=== PATIENT | female | born 1985 | race Caucasian/White ===

== ENCOUNTER 2018-08-18 12:15 | Emergency (ER) | payer MEDICAID, SELFPAY ==
[2018-08-18 12:20] VITALS: BP 107/73; PULSE 105; RESP 16; TEMP 36.7; O2SAT 97
--- NOTE | 2018-08-18 12:41 | DI.CT_ITS ---
SYMPTOMS/DIAGNOSIS: ABDOMINAL PAIN, FEVER CT ABDOMEN AND PELVIS: CT abdomen and pelvis was performed following the uneventful administration of intravenous and oral contrast material. No priors for comparison. The visualized lung bases are clear. The liver, spleen, pancreas, gallbladder, bile ducts, adrenal glands, kidneys, ureter and bladder are unremarkable. The reproductive organs are unremarkable. The aorta is of normal caliber. No significant abdominal or pelvic ascites or pneumoperitoneum is present. There is mild bowel wall thickening seen in loops of small bowel in the left abdomen, suspicious for an enteritis involving the jejunum. The remainder of the bowel is unremarkable. A normal appendix is seen in the right lower quadrant. The bones appear intact. IMPRESSION: Findings consistent with an enteritis. The findings were discussed with the Emergency Department on the date of the examination.
[2018-08-18 12:52] LABS: Bilirubin Negative (Negative); Blood Negative (Negative); Clarity Clear; Glucose Negative (Negative); Ketones Trace mg/dL (Negative); Leukocyte Esterase Negative (Negative); Nitrite Negative (Negative); Specific Gravity 1.025 (1.005-1.025); Urobilinogen 0.2 EU/dL (Up TO 0.2); pH 5.5 (5-8)
[2018-08-18] MEDS: Ketorolac 30 MG/ML VIAL IVP (12:57)
[2018-08-18] MEDS: Normal Saline 1,000 ML 1000 ML IV (12:57)
[2018-08-18] MEDS: Ondansetron 4 MG/2 ML VIAL IVP (12:58)
[2018-08-18 13:05] LABS: Absolute Basophil Count 0.01 k/cumm (0.0-0.2); Absolute Eosinophil Count 0.09 k/cumm (0.0-0.7); Absolute Monocyte Count 0.36 k/cumm (0.11-0.7); Absolute Neutrophil Count 4.09 k/cumm (1.2-6.7); Basophils % 0.2; Eosinophils % 1.7; HGB 15.6 g/dL (12.0-15.5); Lymphocytes % 13.3; Mean Corp. HGB Concentration 34.7 g/dL (32.0-36.0); Mean Corpuscular Hemoglobin 30.8 pg (27.0-33.0); Mean Corpuscular Volume 88.9 fL (80-95); Mean Platelet Volume 9.5 fL (8.0-11.0); Monocytes % 6.9; Neutrophils % 77.9; Platelet Count 208 x1000/uL (130-400); RBC 5.06 m/cumm (4.00-5.20); RBC Distribution Width 12.9 % (11.7-14.6); White Blood Cell Count 5.25 k/cumm (4.4-10.8)
--- NOTE | 2018-08-18 13:11 | W.ED.GENAD ---
Discharge Plan Disposition Patient Disposition: HOME Condition: Stable Discharge Details Chief Complaint: Abd Prob Clinical Impression: Gastroenteritis Primary Care Provider: Maribell Hearn ED Provider: Benedict Dowell Home Meds and New Rx's Prescriptions: New ondansetron 4 mg tablet,disintegrating 4 mg PO Q6H PRN (Reason: nausea and vomiting) Qty: 14 RF: 0 Continue dextroamphetamine-amphetamine [Adderall XR] 15 mg Capsule,Extended Release 24hr 15 mg PO QAM RF: 0 Discharge Instructions Instructions: Gastroenteritis (ED) Additional Instructions: Feel free to return to the emergency department as needed for any new or worsening symptoms, high fever, persistent nausea vomiting, or any further concerns he may have. Otherwise take antinausea medication as needed and acetaminophen/Tylenol for any discomfort and follow-up with your primary care provider for reassessment if not improving next week. Stay well-hydrated and get plenty of rest during illness. Referrals: Maribell Hearn [Primary Care Provider] - (If not improving in the next week please follow-up with your primary care provider as needed for reassessment.) Discharge Data Discharge Date/Time-TO BE ENTERED AT DEPARTURE: 08/18/18 15:51 Medical Decision Making Patient presenting to the emergency department for chief complaint of abdominal pain. Patient reports that this is been going on for 3 days and she has been having nausea vomiting fever and chills. She denies ever having pain or discomfort like this. Patient states last menstrual period is 3 weeks ago and denies any urinary or vaginal symptoms. Physical exam shows left lower quadrant and suprapubic tenderness but otherwise is unremarkable. Plan on checking status, labs, and CT imaging given that patient does have fever and abdominal pain. Differential diagnosis includes diverticulitis, atypical appendicitis, gastroenteritis. Pending results patient given ketorolac, Zofran, and IV fluid. After review of labs that show no leukocytosis, CMP and other lab is nondiagnostic, and CT imaging shows signs of enteritis otherwise no other acute findings noted. Patient was reassessed. Patient stated improvement after medications and fluids and just states some mild upset stomach and belching so patient was ordered GI cocktail. Otherwise I feel the patient is able to be safely discharged to follow-up with her primary care provider if not improving over the next week. Patient was given prescription for ODT Zofran to use for any nausea vomiting and encouraged to stay well-hydrated and get plenty of rest during illness. After discussion of diagnosis and plan of care patient has no further needs, questions, or concerns and states clear understanding to return to the emergency department for any worsening symptoms. HPI General Mode of arrival: ambulatory. Date/Time Provider Initiated Documentation: 08/18/18 12:17. Limitations to Documentation: no limitations. Information obtained by: patient and RN notes reviewed. History of Present Illness 32 year old F presents to the emergency department with the chief complaint of Abdominal pain, described as moderate, with intensity rated at 5. Quality is described as aching, and is localized to the abdomen. Patient reports no radiation. Patient started experiencing this day(s) (3) and it has been constant. No relieving factors improve symptom(s), No exacerbating factors reported . Patient notes nausea/vomiting. Patient did receive the following treatments prior to arrival, none Related Data Home Medications Medication Instructions Recorded Confirmed dextroamphetamine-amphetamine 15 mg PO QAM 08/18/18 08/18/18 [Adderall XR] ondansetron 4 mg PO Q6H PRN #14 tab 08/18/18 Previous Rx's Medication Instructions Recorded ondansetron 4 mg PO Q6H PRN #14 tab 08/18/18 Allergies Allergy/AdvReac Type Severity Reaction Status Date / Time cephalexin [From Keflex] Allergy Unverified 08/18/18 12:25 clindamycin Allergy Unverified 08/18/18 12:25 General Stated Complaint: Abd Prob SHAILESH: 3 Review of Systems Constitutional Reports chills, Reports fever(s), Reports malaise and Reports poor appetite Cardiovascular Denies chest pain and Denies dyspnea Respiratory Denies dyspnea Gastrointestinal Reports as per HPI, Reports abdominal pain, Denies melena, Denies change in bowel habits, Denies constipation, Denies diarrhea, Reports nausea and Reports vomiting Genitourinary Denies hematuria, Denies urinary incontinence, Denies urinary hesitancy and Denies urinary urgency Integumentary/Breasts Denies rash PFSH Social History Smoking/Tobacco Use Status: Current-Occasional Exam Const General: cooperative Orientation: alert, awake and oriented x3 Resp Effort & Inspection: normal respiratory effort and able to speak in complete sentences Auscultation: clear to auscultation bilaterally Cardio Rate: regular rate Rhythm: regular rhythm Heart Sounds: S1 normal and S2 normal GI Palpation: soft, no hepatosplenomegaly, not firm, no guarding, no masses, no pulsatile masses, not rigid, no splenomegaly and tender in the LLQ and suprapubicly; Sterling's sign negative and Rovsing's sign negative Auscultation: normal bowel sounds Back/Spine/Pelvis Back: no CVA tenderness Neuro General: alert, awake, oriented x3, gait normal and moves all extremities Course Vital Signs Temperature 36.7 C 08/18/18 12:20 Pulse 105 H 08/18/18 12:20 Respiratory Rate 16 08/18/18 12:20 Blood Pressure 107/73 08/18/18 12:20 Pulse Oximetry 97 08/18/18 12:20 Temperature 36.7 C 08/18/18 12:20 Temperature Source Temporal Artery Scan 08/18/18 12:20 Pulse 105 H 08/18/18 12:20 Respiratory Rate 16 08/18/18 12:20 Respiratory Effort Non-Labored 08/18/18 12:22 Blood Pressure 107/73 08/18/18 12:20 Pulse Oximetry 97 08/18/18 12:20 Oxygen Delivery Method Room Air 08/18/18 12:20 Oxygen Flow Rate 0 08/18/18 12:20 Pain Level 5 08/18/18 12:58 Lab/Test Results Lab/Test Results: Laboratory Tests Range/Units 08/18/18 08/18/18 12:45 12:58 WBC (4.4-10.8) k/cumm 5.25 RBC (4.00-5.20) m/cumm 5.06 Hgb (12.0-15.5) g/dL 15.6 H Hct (36.0-46.0) % 45.0 MCV (80-95) fL 88.9 MCH (27.0-33.0) pg 30.8 MCHC (32.0-36.0) g/dL 34.7 RDW (11.7-14.6) % 12.9 Plt Count (130-400) x1000/uL 208 MPV (8.0-11.0) fL 9.5 Immature Gran % 0.0 Neutrophils % 77.9 Lymphocytes % 13.3 Monocytes % 6.9 Eosinophils % 1.7 Basophils % 0.2 Absolute Neutrophils (1.2-6.7) k/cumm 4.09 Absolute Lymphocytes (1.2-3.4) k/cumm 0.70 L Absolute Monocytes (0.11-0.7) k/cumm 0.36 Absolute Eosinophils (0.0-0.7) k/cumm 0.09 Absolute Basophils (0.0-0.2) k/cumm 0.01 Urine Color (Yellow) Yellow Urine Clarity Clear Urine pH (5-8) 5.5 Ur Specific [place] (1.005-1.025) 1.025 Urine Protein (Negative) mg/dL Negative Urine Ketones (Negative) mg/dL Trace H Urine Blood (Negative) Negative Urine Nitrite (Negative) Negative Urine Bilirubin (Negative) Negative Urine Urobilinogen (Up TO 0.2) EU/dL 0.2 Ur Leukocyte Esterase (Negative) Negative Urine Glucose (Negative) mg/dL Negative POC- Test(urine) Negative
[2018-08-18 13:16] LABS: ALT 41 U/L (12-78); AST 40 U/L (15-37); Albumin 3.2 g/dL (3.4-5.0); Alkaline Phosphatase 54 U/L (46-116); Anion Gap 8.2 mmol/L (3-11); BUN 13 mg/dL (7-18); Bilirubin, Total 0.1 mg/dL (0.2-1.0); CO2 26.8 mmol/L (21.0-32.0); CREATININE 0.73 mg/dL (0.55-1.02); Calcium 8.8 mg/dL (8.5-10.1); Chloride 102 mmol/L (98-107); Glucose 91 mg/dL (70-100); Lipase 134 U/L (73-393); Potassium 3.5 mmol/L (3.5-5.1); Sodium 137 mmol/L (136-145); Total Protein 6.6 g/dL (6.4-8.2)
--- NOTE | 2018-08-18 13:17 | ED.GENADUL_ITS ---
Discharge Plan Disposition Patient Disposition: HOME Condition: Stable Discharge Details Chief Complaint: Abd Prob Clinical Impression: Gastroenteritis Primary Care Provider: Maribell Hearn ED Provider: Benedict Dowell Home Meds and New Rx's Prescriptions: New ondansetron 4 mg tablet,disintegrating 4 mg PO Q6H PRN (Reason: nausea and vomiting) Qty: 14 RF: 0 Continue dextroamphetamine-amphetamine [Adderall XR] 15 mg Capsule,Extended Release 24hr 15 mg PO QAM RF: 0 Discharge Instructions Instructions: Gastroenteritis (ED) Additional Instructions: Feel free to return to the emergency department as needed for any new or worsening symptoms, high fever, persistent nausea vomiting, or any further concerns he may have. Otherwise take antinausea medication as needed and acetaminophen/Tylenol for any discomfort and follow-up with your primary care provider for reassessment if not improving next week. Stay well-hydrated and get plenty of rest during illness. Referrals: Maribell Hearn [Primary Care Provider] - (If not improving in the next week please follow-up with your primary care provider as needed for reassessment.) Discharge Data Discharge Date/Time-TO BE ENTERED AT DEPARTURE: 08/18/18 15:51 Medical Decision Making Patient presenting to the emergency department for chief complaint of abdominal pain. Patient reports that this is been going on for 3 days and she has been having nausea vomiting fever and chills. She denies ever having pain or discomfort like this. Patient states last menstrual period is 3 weeks ago and denies any urinary or vaginal symptoms. Physical exam shows left lower quadrant and suprapubic tenderness but otherwise is unremarkable. Plan on checking status, labs, and CT imaging given that patient does have fever and abdominal pain. Differential diagnosis includes diverticulitis, atypical appendicitis, gastroenteritis. Pending results patient given ketorolac , Zofran, and IV fluid. After review of labs that show no leukocytosis, CMP and other lab is nondiagnostic, and CT imaging shows signs of enteritis otherwise no other acute findings noted. Patient was reassessed. Patient stated improvement after medications and fluids and just states some mild upset stomach and belching so patient was ordered GI cocktail. Otherwise I feel the patient is able to be safely discharged to follow-up with her primary care provider if not improving over the next week. Patient was given prescription for ODT Zofran to use for any nausea vomiting and encouraged to stay well-hydrated and get plenty of rest during illness. After discussion of diagnosis and plan of care patient has no further needs, questions, or concerns and states clear understanding to return to the emergency department for any worsening symptoms. HPI General Mode of arrival: ambulatory . Date/Time Provider Initiated Documentation: 08/18/18 12:17 . Limitations to Documentation: no limitations . Information obtained by: patient and RN notes reviewed . History of Present Illness 32 year old F presents to the emergency department with the chief complaint of Abdominal pain, described as moderate, with intensity rated at 5. Quality is described as aching, and is localized to the abdomen. Patient reports no radiation. Patient started experiencing this day(s) (3) and it has been constant. No relieving factors improve symptom(s), No exacerbating factors reported . Patient notes nausea/vomiting. Patient did receive the following treatments prior to arrival, none Related Data Home Medications Medication Instructions Recorded Confirmed dextroamphetamine-amphetamine 15 mg PO QAM 08/18/18 08/18/18 [Adderall XR] ondansetron 4 mg PO Q6H PRN #14 tab 08/18/18 Previous Rx's Medication Instructions Recorded ondansetron 4 mg PO Q6H PRN #14 tab 08/18/18 Allergies Allergy/AdvReac Type Severity Reaction Status Date / Time cephalexin [From Keflex] Allergy Unverified 08/18/18 12:25 clindamycin Allergy Unverified 08/18/18 12:25 General Stated Complaint: Abd Prob SHAILESH: 3 Review of Systems Constitutional Reports chills, Reports fever(s), Reports malaise and Reports poor appetite Cardiovascular Denies chest pain and Denies dyspnea Respiratory Denies dyspnea Gastrointestinal Reports as per HPI, Reports abdominal pain, Denies melena, Denies change in bowel habits, Denies constipation, Denies diarrhea, Reports nausea and Reports vomiting Genitourinary Denies hematuria, Denies urinary incontinence, Denies urinary hesitancy and Denies urinary urgency Integumentary/Breasts Denies rash PFSH Social History Smoking/Tobacco Use Status: Current-Occasional Exam Const General: cooperative Orientation: alert, awake and oriented x3 Resp Effort & Inspection: normal respiratory effort and able to speak in complete sentences Auscultation: clear to auscultation bilaterally Cardio Rate: regular rate Rhythm: regular rhythm Heart Sounds: S1 normal and S2 normal GI Palpation: soft, no hepatosplenomegaly, not firm, no guarding, no masses, no pulsatile masses, not rigid, no splenomegaly and tender in the LLQ and suprapubicly; Sterling's sign negative and Rovsing's sign negative Auscultation: normal bowel sounds Back/Spine/Pelvis Back: no CVA tenderness Neuro General: alert, awake, oriented x3, gait normal and moves all extremities Course Vital Signs Temperature 36.7 C 08/18/18 12:20 Pulse 105 H 08/18/18 12:20 Respiratory Rate 16 08/18/18 12:20 Blood Pressure 107/73 08/18/18 12:20 Pulse Oximetry 97 08/18/18 12:20 Temperature 36.7 C 08/18/18 12:20 Temperature Source Temporal Artery Scan 08/18/18 12:20 Pulse 105 H 08/18/18 12:20 Respiratory Rate 16 08/18/18 12:20 Respiratory Effort Non-Labored 08/18/18 12:22 Blood Pressure 107/73 08/18/18 12:20 Pulse Oximetry 97 08/18/18 12:20 Oxygen Delivery Method Room Air 08/18/18 12:20 Oxygen Flow Rate 0 08/18/18 12:20 Pain Level 5 08/18/18 12:58 Lab/Test Results Lab/Test Results: Laboratory Tests Range/Units 08/18/18 08/18/18 12:45 12:58 WBC (4.4-10.8) k/cumm 5.25 RBC (4.00-5.20) m/cumm 5.06 Hgb (12.0-15.5) g/dL 15.6 H Hct (36.0-46.0) % 45.0 MCV (80-95) fL 88.9 MCH (27.0-33.0) pg 30.8 MCHC (32.0-36.0) g/dL 34.7 RDW (11.7-14.6) % 12.9 Plt Count (130-400) x1000/uL 208 MPV (8.0-11.0) fL 9.5 Immature Gran % 0.0 Neutrophils % 77.9 Lymphocytes % 13.3 Monocytes % 6.9 Eosinophils % 1.7 Basophils % 0.2 Absolute Neutrophils (1.2-6.7) k/cumm 4.09 Absolute Lymphocytes (1.2-3.4) k/cumm 0.70 L Absolute Monocytes (0.11-0.7) k/cumm 0.36 Absolute Eosinophils (0.0-0.7) k/cumm 0.09 Absolute Basophils (0.0-0.2) k/cumm 0.01 Urine Color (Yellow) Yellow Urine Clarity Clear Urine pH (5-8) 5.5 Ur Specific [place] (1.005-1.025) 1.025 Urine Protein (Negative) mg/dL Negative Urine Ketones (Negative) mg/dL Trace H Urine Blood (Negative) Negative Urine Nitrite (Negative) Negative Urine Bilirubin (Negative) Negative Urine Urobilinogen (Up TO 0.2) EU/dL 0.2 Ur Leukocyte Esterase (Negative) Negative Urine Glucose (Negative) mg/dL Negative POC- Test(urine) Negative
[2018-08-18] MEDS: Omnipaque 350 MG/ML 100 ML BTL IJ (14:54)
[2018-08-18 15:47] VITALS: BP 100/58; PULSE 85; RESP 16; TEMP 37.2; O2SAT 99
== END 2018-08-18 15:51 | disposition home or self-care (01) ==
PROVIDERS: Emergency Provider Nurse Practitioner Family; PCP Family Medicine
DX: K52.9 Noninfective gastroenteritis and colitis, unspecified (principal)
CPT/HCPCS: 36415; 80053; 83690; 99285; 74177; 81003; 85025; 99284; J1885; J2405; J3490

== ENCOUNTER 2018-08-24 17:25 | Emergency (ER) | payer MEDICAID, SELFPAY ==
[2018-08-24 17:31] VITALS: BP 129/72; PULSE 88; RESP 16; TEMP 37; O2SAT 98
[2018-08-24] MEDS: FAMOTIDINE 20 MG/50 ML BAG 100 MG IVPB (18:03)
[2018-08-24] MEDS: methylPREDNISolone SUCC 125 MG VIAL IVP (18:03)
[2018-08-24] MEDS: diphenhydrAMINE 50 MG/ML VIAL 25 MG IVP (18:04)
[2018-08-24] MEDS: Normal Saline 1,000 ML 1000 ML IV (18:23)
[2018-08-24 18:32] LABS: Abs Immature Grans 0.02 k/cumm (0.0-0.09); HCT 40.2 % (36.0-46.0); HGB 13.9 g/dL (12.0-15.5); Mean Corp. HGB Concentration 34.6 g/dL (32.0-36.0); Mean Corpuscular Hemoglobin 30.2 pg (27.0-33.0); Mean Corpuscular Volume 87.4 fL (80-95); Mean Platelet Volume 9.8 fL (8.0-11.0); Platelet Count 291 x1000/uL (130-400); RBC Distribution Width 12.8 % (11.7-14.6)
[2018-08-24 18:37] LABS: ALT 68 U/L (12-78); AST 46 U/L (15-37); Albumin 3.2 g/dL (3.4-5.0); Alkaline Phosphatase 62 U/L (46-116); Anion Gap 8.2 mmol/L (3-11); BUN 13 mg/dL (7-18); Bilirubin, Total 0.4 mg/dL (0.2-1.0); CO2 26.8 mmol/L (21.0-32.0); CREATININE 0.65 mg/dL (0.55-1.02); Calcium 8.4 mg/dL (8.5-10.1); Chloride 104 mmol/L (98-107); Glucose 89 mg/dL (70-100); Potassium 3.5 mmol/L (3.5-5.1); Sodium 139 mmol/L (136-145); Total Protein 6.6 g/dL (6.4-8.2)
[2018-08-24 18:45] LABS: Absolute Neutrophil Count 4.55 k/cumm (1.2-6.7)
[2018-08-24 18:46] LABS: Absolute Eosinophil Count 0.07 k/cumm (0.0-0.7); Absolute Lymphocyte Count 2.17 k/cumm (1.2-3.4); Absolute Monocyte Count 0.21 k/cumm (0.11-0.7); Atypical Lymphocytes % 8; Diff Comment Manual Differential
[2018-08-24 18:47] LABS: RBC Morphology Normal
[2018-08-24 19:12] VITALS: BP 117/69; PULSE 81; RESP 18; O2SAT 99
--- NOTE | 2018-08-24 19:17 | ED.GENADUL_ITS ---
Discharge Plan Disposition Patient Disposition: HOME Condition: Good Discharge Details Chief Complaint: Allergic Clinical Impression: Allergic reaction, Hives Primary Care Provider: Maribell Hearn ED Provider: Sukhjinder Pickard Home Meds and New Rx's Prescriptions: New diphenhydramine HCl [Benadryl] 25 MG capsule 25 mg PO Q6H Qty: 100 RF: 0 ranitidine HCl [Zantac] 150 MG tablet 150 mg PO BID Qty: 100 RF: 0 prednisone 50 MG tablet 50 mg PO DAILY Qty: 5 RF: 0 epinephrine 0.3 mg/0.3 mL auto-injector 0.3 mg IM ONCE Qty: 1 RF: 0 No Action dextroamphetamine-amphetamine [Adderall XR] 15 mg Capsule,Extended Release 24hr 15 mg PO QAM RF: 0 ondansetron 4 mg tablet,disintegrating 4 mg PO Q6H PRN (Reason: nausea and vomiting) Qty: 14 RF: 0 Discharge Instructions Instructions: Epinephrine (Injection), Urticaria (ED), General Allergic Reaction (ED) Additional Instructions: Please take the medication as directed. If you notice any worsening of your symptoms, difficulty breathing, vomiting, diarrhea, please return immediately. If you do develop these symptoms please use your EpiPen by injecting it into your front side of your thigh. If you notice any worsening of your symptoms, or any new symptoms such as vomiting, diarrhea, fever, chills, shortness of breath, chest pain, numbness, weakness, or fainting , please return immediately to the emergency department for reevaluation. Please follow up with your primary care provider as soon as possible for reassessment and reevaluation. As always, it was a pleasure participating in your medical care today. Referrals: Maribell Hearn [Primary Care Provider] - Medical Decision Making This is a 32-year-old female who presents today for evaluation of a rash over her chest abdomen and back as well as her arms. It started last night , got worse today. She did take 25 mg of Benadryl prior to arrival. Physical exam demonstrates a red blanching hive-like reaction over the patient's upper body and upper extremities. No oral lesions are present on my exam. No lesions on the legs, palms, or soles. No clinical evidence of staph scalded skin syndrome, Bryant-Erasmo syndrome, discrimination, bulla, or shingles. The patient vehemently denies any new foods, medications, detergents, or soaps. After a long and thorough evaluation we cannot find any potential new aggravating to cause her symptoms. Her symptoms started well after the medications he received in the emergency department. She has no history of anaphylaxis. Physical exam showing a hive-like reaction, and concern for a mild allergic component. We did give the patient Solu-Medrol, Benadryl, Pepcid , IV fluids. After these medications the patient was reassessed and she demonstrated a significant improvement and near resolution of her rash and symptoms. With no signs of anaphylaxis, no other systemic symptoms, and a rash that is improved, well controlled, and has no more itching I feel that she can be safely discharged home. Discussed with her the importance of avoiding any potential allergens, we will prescribe an EpiPen, and I did discuss with her how to utilize this. She will be discharged home with prednisone, Pepcid, and Benadryl. We discussed red flags for which to return. I have extensively reviewed the treatment plan and discharge instructions with the patient. I have addressed all patient concerns at this time. The patient was made aware of what symptoms to monitor for that would warrant a return to the emergency department. Discussed the plan with the patient, they demonstrate verbal understanding and agreement with our assessment and plan at this time. HPI General Date/Time Provider Initiated Documentation: 08/24/18 17:59 . HPI Narrative: This is a 32-year-old female with no significant past medical history who presents today for evaluation of allergic rash. Patient states that she was seen here in the emergency department a few days ago for nausea vomiting and diarrhea. Workup at that time was relatively benign, since then her nausea vomiting diarrhea have improved, however roughly 48 hours after discharge she began to develop symptoms of mild rash starting last night. The rash started on her chest, however today it spread over her arms, her abdomen, waist, and her back. She describes the rash is very itchy. She is concerned there may be some lesions in the mouth as well. She does take a regular oral contraceptive medication but has not changed this recently. She has had no new medications, no new prescriptions, no deodorants, soaps, shampoos, or detergents. No new pets. She has not come in contact with any deborah, final, or wildlife. She has had no recent shellfish, no history of previous food allergy, or any other reaction. Past medical history is positive for Keflex and clindamycin allergy which never presented like this. Patient denies any history of severe allergy, or anaphylaxis. She has no other complaints at this time. She denies any recent surgeries. She denies any pertinent family history Related Data Home Medications Medication Instructions Recorded Confirmed dextroamphetamine-amphetamine 15 mg PO QAM 08/18/18 08/24/18 [Adderall XR] ondansetron 4 mg PO Q6H PRN #14 tab 08/18/18 08/24/18 diphenhydramine HCl [Benadryl] 25 mg PO Q6H #100 cap 08/24/18 epinephrine 0.3 mg IM ONCE #1 each 08/24/18 prednisone 50 mg PO DAILY #5 tab 08/24/18 ranitidine HCl [Zantac] 150 mg PO BID #100 tab 08/24/18 Previous Rx's Medication Instructions Recorded ondansetron 4 mg PO Q6H PRN #14 tab 08/18/18 diphenhydramine HCl [Benadryl] 25 mg PO Q6H #100 cap 08/24/18 epinephrine 0.3 mg IM ONCE #1 each 08/24/18 prednisone 50 mg PO DAILY #5 tab 08/24/18 ranitidine HCl [Zantac] 150 mg PO BID #100 tab 08/24/18 Allergies Allergy/AdvReac Type Severity Reaction Status Date / Time cephalexin [From Keflex] Allergy Unverified 08/18/18 12:25 clindamycin Allergy Unverified 08/18/18 12:25 General Stated Complaint: Allergic SHAILESH: 3 Review of Systems Review of Systems All systems reviewed & are unremarkable except as noted in HPI and below Exam Narrative Exam Narrative: 1.Const: Well-nourished, Well-developed, appearing stated age 2.Eyes: PERRL, no conjunctival injection, and symmetrical lids. 3.ENT: Atraumatic external nose and ears. Moist MM. Neck: Symmetric, trachea midline, No thyromegaly. No evidence of airway compromise, swelling in the oropharynx, signs of respiratory distress, or other abnormalities. Although the patient states that she has some lesions in the mouth I cannot appreciate them at this time. No evidence of lesions on the buccal mucosa, tongue, soft or hard palate with the lips. Lips are not swollen, no evidence of angioedema peer 4.CVS: +S1/S2, No murmurs or gallops. Peripheral pulses 2+ and equal in all extremities. Brisk capillary refill in all extremities. 5.RESP: Unlabored respiratory effort. Clear to auscultation bilaterally. No wheezes rales or rhonchi 6.GI: Soft, Nontender/Nondistended, No hepatosplenomegaly. No guarding or rebound. 7.MSK: Normocephalic/Atraumatic, Extremities w/o deformity or ttp No cyanosis or clubbing, Normal movement of all extremities 8.Skin: Warm, Dry. Patient does demonstrate a macular erythematous hive-like rash over the abdomen, chest, back, and arms. No evidence of rash over the legs , neck, or face. The rash is blanching. Negative Nikolsky sign, no clinical evidence of staph scalded skin syndrome, Bryant-Erasmo syndrome, chapping or discrimination of the palms, soles, or lips. 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 Sensation grossly intact, no focal neurologic deficits. 10.Psych: (AAO) x3. Appropriate mood and affect Course Vital Signs Temperature 37.0 C 08/24/18 17:31 Pulse 88 08/24/18 17:31 Respiratory Rate 16 08/24/18 17:31 Blood Pressure 129/72 08/24/18 17:31 Pulse Oximetry 98 08/24/18 17:31 Temperature 37.0 C 08/24/18 17:31 Temperature Source Temporal Artery Scan 08/24/18 17:31 Pulse 81 08/24/18 19:12 Respiratory Rate 18 08/24/18 19:12 Respiratory Effort 08/24/18 17:36 Respiratory Pattern Normal 08/24/18 17:36 Blood Pressure 117/69 08/24/18 19:12 Blood Pressure Position Sitting 08/24/18 17:31 Pulse Oximetry 99 08/24/18 19:12 Oxygen Delivery Method Room Air 08/24/18 19:12 Oxygen Flow Rate 0 08/24/18 19:12 Pain Level 4 08/24/18 17:31 Lab/Test Results Lab/Test Results: Laboratory Tests Range/Units 08/24/18 08/24/18 18:10 18:10 WBC (4.4-10.8) k/cumm 7.00 RBC (4.00-5.20) m/cumm 4.60 Hgb (12.0-15.5) g/dL 13.9 Hct (36.0-46.0) % 40.2 MCV (80-95) fL 87.4 MCH (27.0-33.0) pg 30.2 MCHC (32.0-36.0) g/dL 34.6 RDW (11.7-14.6) % 12.8 Plt Count (130-400) x1000/uL 291 MPV (8.0-11.0) fL 9.8 Immature Gran % 0.0 Neutrophils % 65.0 Lymphocytes % 23.0 Monocytes % 3.0 Eosinophils % 1.0 Basophils % 0.0 Absolute Neutrophils (1.2-6.7) k/cumm 4.55 Absolute Lymphocytes (1.2-3.4) k/cumm 2.17 Absolute Monocytes (0.11-0.7) k/cumm 0.21 Absolute Eosinophils (0.0-0.7) k/cumm 0.07 Absolute Basophils (0.0-0.2) k/cumm 0.00 Differential Comment Manual differential Atypical Lymphocytes 8 RBC Morphology Normal Sodium (136-145) mmol/L 139 Potassium (3.5-5.1) mmol/L 3.5 Chloride (98-107) mmol/L 104 Carbon Dioxide (21.0-32.0) mmol/L 26.8 Anion Gap (3-11) mmol/L 8.2 BUN (7-18) mg/dL 13 Creatinine (0.55-1.02) mg/dL 0.65 Estimated GFR/1.73 m2 (mL/min/1.73m2) >= 60.00 Glucose (70-100) mg/dL 89 Calcium (8.5-10.1) mg/dL 8.4 L Total Bilirubin (0.2-1.0) mg/dL 0.4 AST (15-37) U/L 46 H ALT (12-78) U/L 68 Alkaline Phosphatase (46-116) U/L 62 Total Protein (6.4-8.2) g/dL 6.6 Albumin (3.4-5.0) g/dL 3.2 L POC- Test(urine) Negative
== END 2018-08-24 19:14 | disposition home or self-care (01) ==
PROVIDERS: Emergency Provider Student in an Organized Health Care Education/Training Program; PCP Family Medicine
DX: L50.0 Allergic urticaria (principal); X58.XXXA Exposure to other specified factors, initial encounter
CPT/HCPCS: 36415; 80053; 81025; 96361; 96365; 96375; 99284; 85025; J1200; J2930